=== PATIENT | female | born 1965 | race Caucasian/White ===

== ENCOUNTER 2021-08-20 08:58 | Outpatient (CLI) | payer OTHER, SELFPAY ==
--- NOTE | 2021-08-21 14:15 | WPDHOLTEREM ---
Holter/Event Monitor Holter/Event Monitor Date of procedure: 08/22/21 Holter/Event Procedure: 24 Hr Holter Monitor Indications: Presyncope Conclusion: 1. 24 hour holter monitor on 08/31/21. 2. Predominant rhythm is sinus rhythm. HR range 57-121 bpm; average HR 82 bpm. 3. There are 318 premature supraventricular complexes, 4 supraventricular couplets. There are 2 episodes of atrial tachycardia, fastest at 156 bpm and longest lasting 5 beats. 4. There are 903 premature ventricular complexes, 9 ventricular couplets, 310 ventricular bigeminy and 7 ventricular trigeminy. 5. No significant pauses greater than 2 seconds. 6. Patient reports symptoms of lightheadedness which demonstrate sinus rhythm, HR range 83-93 bpm.
== END 2021-08-20 08:59 | disposition home or self-care (01) ==
LOC: CHSCARD 09:05
PROVIDERS: PCP Family Medicine; Visit Provider Family Medicine
DX: R55 Syncope and collapse (principal)
CPT/HCPCS: 93005; 93225; 93226

== ENCOUNTER 2022-06-17 11:18 | Outpatient (NON) | payer OTHER, SELFPAY ==
[2022-06-17 11:29] LABS: Basophils Absolute Auto 0.03 K/mm3 (0.00-0.10); Basophils Percent Auto 0.5 % (0.0-1.0); Eosinophils Absolute Auto 0.14 K/mm3 (0.02-0.50); Eosinophils Percent Auto 2.3 % (1.0-6.0); Hematocrit 32.7 % (35.0-49.0); Immature Granulocyte Absolute 0.02 K/mm3 (0.00-0.00); Immature Granulocyte Percent A 0.3 % (0.0-0.0); Lymphocytes Absolute Auto 1.79 K/mm3 (1.10-4.50); Lymphocytes Percent Auto 28.8 % (18.0-42.0); Mean Corpuscular HGB Conc 30.6 g/dL (32.0-36.0); Mean Corpuscular Hemoglobin 25.8 pg (27.0-31.0); Mean Corpuscular Volume 84.5 fL (78.0-102.0); Mean Platelet Volume 10.6 fl (9.2-11.8); Monocytes Absolute Auto 0.47 K/mm3 (0.10-0.90); Monocytes Percent Auto 7.6 % (2.0-11.0); Neutrophils Absolute Auto 3.8 K/mm3 (1.7-7.2); Neutrophils Percent Auto 60.5 % (50.0-70.0); Platelet Count Result 229 K/mm3 (150-420); Red Blood Count 3.87 M/mm3 (4.20-5.40); Red Cell Distribution Width 17.3 % (11.6-14.4); White Blood Count 6.2 K/mm3 (4.8-10.8)
[2022-06-17 11:40] LABS: Alanine Aminotransferase 14 U/L (14-59); Alkaline Phosphatase 99 U/L (46-116); Anion Gap 8 mmol/L (8-16); Aspartate Amino Transferase < 10 U/L (15-37); Bilirubin,Total 0.8 mg/dL (0.00-1.00); Blood Urea Nitrogen 10 mg/dL (7-18); Calcium 8.2 mg/dL (8.5-10.1); Carbon Dioxide 27 mmol/L (21-32); Chloride 105 mmol/L (98-108); Estimated Glomerular Filt Rate > 60; Glucose 98 mg/dL (70-99); Osmolality Calculated 289 mOsm/kg (285-295); Potassium 3.4 mmol/L (3.5-5.1); Sodium 140 mmol/L (136-145); Total Protein 8.6 g/dL (6.4-8.2); Vancomycin Trough 14.6 ug/mL (10.0-15.0)
== END 2022-06-17 11:19 | disposition home or self-care (01) ==
LOC: CHSLAB 11:20
PROVIDERS: Visit Provider Family Medicine
DX: L03.116 Cellulitis of left lower limb (principal); A49.02 Methicillin resistant Staphylococcus aureus infection, unspecified site; Z79.2 Long term (current) use of antibiotics
CPT/HCPCS: 80053; 80202; 85025

== ENCOUNTER 2022-07-31 10:50 | Emergency (ER) | payer OTHER, SELFPAY ==
[2022-07-31 11:04] VITALS: BP 142/99; PULSE 117; RESP 16; TEMP 38.2; O2SAT 98
[2022-07-31] MEDS: guaiFENesin/DEXTROMETHORPHAN 5 ML UDC 10 ML PO (11:58)
[2022-07-31] MEDS: IBUPROFEN 400 MG TABLET 800 MG PO (11:59)
[2022-07-31] MEDS: BENZONATATE 100 MG CAPSULE PO (12:01)
[2022-07-31] MEDS: ACETAMINOPHEN 500 MG TABLET 1000 MG PO (12:01)
[2022-07-31 12:05] LABS: Strep Group A RT-PCR NOT DETECTED (Negative)
[2022-07-31 12:17] LABS: Influenza A QL RT-PCR Positive (Negative); Influenza B QL RT-PCR Negative (Negative); SARS-CoV-2 RNA PCR Negative (Negative)
--- NOTE | 2022-07-31 12:17 | ED.GENADULT ---
HPI - General Adult General Chief complaint: Upper Respiratory Infection Stated complaint: COUGH FEVER Time Seen by Provider: 07/31/22 10:57 History of Present Illness HPI narrative: the patient is a 57-year-old woman with no significant past medical history. She is not vaccinated against COVID-19. She did contract COVID 19 once during the pandemic. She does not smoke cigarettes. For the last 2 days, the patient has had upper respiratory tract infection symptoms as manifested by cough productive of occasional yellow phlegm but mostly dry. Does have fevers along with chills and diaphoresis and nasal congestion but no rhinorrhea or sore throat or abdominal pain. No vomiting or chest pain. Did take NyQuil at 8:00 a.m. this morning no rash. No UTI symptoms. No dyspnea. Her granddaughter has similar upper respiratory tract infection symptoms. No other sick contacts. Related Data Home Medications Medication Instructions Recorded Confirmed ferrous sulfate 325 mg (65 mg 325 mg PO DAILY 07/31/22 07/31/22 iron) tablet,delayed release Allergies Allergy/AdvReac Type Severity Reaction Status Date / Time No Known Allergies Allergy Verified 07/31/22 11:10 Review of Systems Review of Systems: All systems reviewed & are unremarkable except as noted in HPI and below Constitutional: Constitutional: Reports no additional constitutional complaints, Denies anorexia, Denies body ache(s), Reports chills, Denies excessive sweating, Denies fatigue, Reports fever(s), Denies frequent falls, Denies headache(s), Denies malaise and Denies poor appetite Eyes: Eyes: Reports no additional eye complaints, Denies blurry vision, Denies change in vision, Denies irritation, Denies itchy eyes and Denies photophobia ENT: Reports system reviewed and no additional complaints, except as documented, Reports Normal hearing present, Denies change in voice, Denies dysphagia, Denies vertigo, Denies dizziness, Denies ear discharge, Denies headache(s), Denies hearing loss, Denies hoarseness, Reports nasal congestion, Denies neck pain, Denies sinus pressure, Denies sore throat and Denies throat swelling Cardiovascular: Cardiovascular: Reports no additional cardiovascular complaints, Denies chest pain, Denies syncope, Denies rapid heart rate, Denies irregular heart rhythm, Denies leg edema, Denies dyspnea and Denies slow heart rate Respiratory: Respiratory: Reports no additional respiratory complaints, Reports cough, Denies dyspnea, Denies stridor and Denies wheezing Gastrointestinal: Gastrointestinal: Reports no additional gastrointestinal complaints, Denies abdominal pain, Denies melena, Denies hematochezia, Denies dysphagia, Denies diarrhea, Denies nausea and Denies vomiting Genitourinary: Genitourinary: Denies hematuria, Denies urinary frequency, Denies dysuria, Denies flank pain and Denies urinary urgency Musculoskeletal: Musculoskeletal: Reports no additional musculoskeletal complaints, Denies abnormal gait, Denies back pain, Denies myalgias, Denies arthralgias, Denies joint swelling, Denies limited range of motion, Denies muscle cramps, Denies muscle weakness, Denies neck pain and Denies numbness Integumentary/Breasts: Skin/Breast: Reports system reviewed and no additional complaints, except as docu, Denies breast pain, Denies change in pigmentation, Denies pruritus, Denies erythema and Denies wounds Neurologic: Reports system reviewed and no additional complaints, except as documented, Reports Normal hearing present, Denies Abnormal speech present, Denies abnormal gait, Denies confusion, Denies vertigo, Denies dizziness, Denies syncope, Denies frequent falls, Denies headache(s), Denies focal weakness, Denies numbness and Denies paresthesias Psychiatric: Psychiatric: Reports no additional psychiatric complaints and Denies confusion Endocrine: Endocrine: Reports no additional endocrine complaints, Denies cold intolerance, Denies excessive sweating, Denies fatigue and
[2022-07-31 12:30] LABS: RSV RNA, RT-PCR Negative (Negative)
[2022-07-31 12:40] VITALS: TEMP 37.9
[2022-07-31 13:15] VITALS: TEMP 38.1
[2022-07-31 13:42] VITALS: O2SAT 98
[2022-07-31 13:53] VITALS: TEMP 36.3
[2022-07-31 14:28] VITALS: BP 147/84; PULSE 97; RESP 16; TEMP 37.3; O2SAT 95
== END 2022-07-31 14:28 | disposition home or self-care (01) ==
PROVIDERS: Emergency Provider Emergency Medicine; PCP Family Medicine
DX: J10.1 Influenza due to other identified influenza virus with other respiratory manifestations (principal); Z20.822 Contact with and (suspected) exposure to COVID-19
CPT/HCPCS: 87637; 87651; 99283; A9270